=== PATIENT | female | born 1945 | race American Indian/Alaskan Native ===

== ENCOUNTER 2018-06-02 06:21 | Outpatient (CLI) | payer BC, MEDICARE | END 2018-06-02 06:22 | disposition home or self-care (01) | LOC: CARDIO 06:21 ==

== ENCOUNTER 2018-08-28 09:57 | Outpatient (CLI) | payer BC, MEDICARE | END 2018-08-28 09:58 | disposition home or self-care (01) | LOC: RAD 09:57 ==